=== PATIENT | male | born 2000 | race Two or more races ===

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

== ENCOUNTER 2021-02-10 10:58 | Emergency (ER) | payer MEDICAID ==
[~2021-02-10] VITALS: Ht 172.7 cm; Wt 59.0 kg
[~2021-02-10 10:58] MED LIST: LEVO500T31 PO; METR500T PO
[2021-02-10 11:25] VITALS: BP 126/80
[2021-02-10] MEDS ORDERED: ASPirin 81 mg TAB PO ONE (11:30)
[2021-02-10 11:36] LABS: Basophils # (auto) 0.1 10 ^3/uL (0-0.2); Basophils % (auto) 0.8 % (0.0-2.0); Eosinophils # (auto) 0 10 ^3/uL (0-0.8); Eosinophils % (auto) 0.3 % (0.0-7.0); Hematocrit 47.1 % (41.0-53.0); Hemoglobin 16.3 g/dL (13.5-17.5); Lymphocytes # (auto) 2.4 10 ^3/uL (0.4-5.4); Lymphocytes % (auto) 32.2 % (10.0-50.0); Mean Corpuscular Hgb Conc. 34.5 g/dL (32.0-36.0); Mean Corpuscular Volume 89.8 fL (80.0-100.0); Monocytes # (auto) 0.5 10 ^3/uL (0-1.3); Neutrophils # (auto) 4.5 10 ^3/uL (1.6-8.6); Neutrophils % (auto) 59.7 % (37.0-80.0); Nucleated Red Blood Cells % 0.2 %; Platelet Count (auto) 309 10^3/uL (140-450); Red Blood Cells 5.25 10^6/uL (4.5-5.90); Red Cell Distribution Width 12.7 % (11.8-14.3); White Blood Cell 7.5 10^3/uL (4.4-10.8)
[2021-02-10 12:04] LABS: Albumin 4.9 g/dL (3.4-5.0); Anion Gap 8 (5-15); Blood Urea Nitrogen 8 mg/dL (7-18); Calcium 9.1 mg/dL (8.5-10.1); Carbon Dioxide 24 mmol/L (21-32); Chloride 108 mmol/L (98-107); Glucose 88 mg/dL (74-106); Potassium 3.4 mmol/L (3.5-5.1); Sodium 140 mmol/L (136-145)
[2021-02-10 12:19] LABS: Alanine Aminotransferase 21 U/L (16-61); Alkaline Phosphatase 65 U/L (45-117); Aspartate Aminotransferase 20 U/L (15-37); BUN/Creatinine Ratio 9.3; Bilirubin, Total 1.1 mg/dL (0.2-1.0); GFR African American 146 mL/min; GFR Non-African American 121 mL/min
== END 2021-02-10 13:01 | disposition home or self-care (01) ==
LOC: ER 10:58
DX: R07.9 Chest pain, unspecified (principal); F41.9 Anxiety disorder, unspecified; Z88.0 Allergy status to penicillin
CPT/HCPCS: 36415; 70450; 80053; 84484; 85025; 93005

== ENCOUNTER 2021-08-13 20:46 | Emergency (ER) | payer MEDICAID ==
[~2021-08-13] VITALS: Ht 172.7 cm; Wt 63.5 kg
[2021-08-13 21:46] VITALS: BP 121/80
== END 2021-08-14 00:20 | disposition home or self-care (01) ==
LOC: ER 20:46
DX: R07.89 Other chest pain (principal); K21.9 Gastro-esophageal reflux disease without esophagitis; Z88.0 Allergy status to penicillin
CPT/HCPCS: 70450; 71250; 93005